=== PATIENT | male | born 1975 | race Two or more races ===

== ENCOUNTER 2018-03-28 19:55 | Inpatient (IN) | payer OTHER ==
[~2018-03-28] VITALS: Ht 190.5 cm; Wt 87.9 kg
[2018-03-28] MEDS ORDERED: LORazepam 2MG/ML-1ML VIAL IV PRN (23:30)
[2018-03-28] MEDS ORDERED: DEXTROSE (50%) 50ML SYRG IV PRN (23:30)
[2018-03-28] MEDS ORDERED: LABETALOL HCL 5 MG/ML ML 20ML VIAL IV PRN (23:30)
[2018-03-28] MEDS ORDERED: ACETAMINOPHEN 650 mg PER 20 mL UD GT PRN (23:30)
[2018-03-28] MEDS ORDERED: BISACODYL 10 MG RECT SUPP PR PRN (23:30)
[2018-03-28] MEDS ORDERED: MORPHINE SULFATE 4 MG/ML SYR/VIAL IV PRN ×2 (23:30)
[2018-03-28] MEDS ORDERED: NITROGLYCERIN 0.4 MG SL TAB SL PRN (23:30)
[2018-03-28] MEDS ORDERED: ONDANSETRON HCL 4 MG/2 ML VIAL IV PRN (23:30)
[2018-03-29] MEDS: ACCU-CHEK COMFORT CURVE STRIP VI SCH ×5 (01:33→23:35)
[2018-03-29 01:56] LABS: Basophils # (auto) 0 uL; Basophils % (auto) 0.3 % (0.0-2.0); Eosinophils # (auto) 0.1 uL; Eosinophils % (auto) 0.6 % (0.0-7.0); Hematocrit 40.7 % (41.0-53.0); Hemoglobin 13.6 g/dL (13.5-17.5); Lymphocytes # (auto) 0.6 uL; Lymphocytes % (auto) 4.8 % (10.0-50.0); Mean Corpuscular Hemoglobin 32.3 pg (28.0-32.0); Mean Corpuscular Hgb Conc. 33.4 g/dL (32.0-36.0); Mean Corpuscular Volume 96.6 fL (80.0-100.0); Monocytes # (auto) 1.3 uL; Neutrophils # (auto) 9.7 uL; Neutrophils % (auto) 83.3 % (37.0-80.0); Platelet Count (auto) 350 10^3/uL (140-450); Red Blood Cells 4.21 10^6/uL (4.5-5.90); Red Cell Distribution Width 13.3 % (11.8-14.3); White Blood Cell 11.6 10^3/uL (4.4-10.8)
[2018-03-29 02:02] LABS: INR 0.96 (0.9-1.15); Partial Thromboplastin Time 30.1 sec (23.78-33.04); Prothrombin Time 10.3 sec (9.27-12.13)
[2018-03-29 02:04] LABS: Albumin 2.3 g/dL (3.4-5.0); BUN/Creatinine Ratio 22.7; Potassium 4.5 mmol/L (3.5-5.1)
[2018-03-29 02:05] LABS: Bilirubin, Total 0.8 mg/dL (0.2-1.0); Total Protein 8.3 g/dL (6.4-8.2)
[2018-03-29] MEDS: MORPHINE SULF INJ 2 MG/ML SYRINGE 1ML IV PRN ×2 (04:00→19:52)
[2018-03-29] MEDS ORDERED: MORPHINE SULF INJ 2 MG/ML SYRINGE 1ML IV PRN (04:00)
[2018-03-29 05:00] VITALS: BP 126/70
[2018-03-29] MEDS: InsuLIN REG 1unit/0.01ml Soln (100units/ml) SC SCH ×5 (06:00→23:36)
[2018-03-29] MEDS: SUCRALFATE 1 GM/10 ML ORAL SUSP GT SCH ×5 (06:43→21:53)
[2018-03-29 08:00] VITALS: BP 126/80
[2018-03-29] MEDS: DEXAMETHASONE SOD PHOS 4 MG/1ML SDV INJ IV SCH ×2 (11:31→21:53)
[2018-03-29] MEDS: FAMOTIDINE (10MG/ML) 2ML VL IV SCH ×2 (11:31→21:53)
[2018-03-29] MEDS: PHENYTOIN IV DILANTIN 300 MG in SODIUM CHL 0.9% 50 ML IV SCH ×2 (12:07→22:14)
[2018-03-29 13:03] VITALS: BP 123/87
[2018-03-29] MEDS ORDERED: Jevity 1.2 Cal/Fiber 1 Liter GT SCH (15:45)
[2018-03-29 16:32] VITALS: BP 129/90
[2018-03-29] MEDS: APIXABAN 5 MG TAB PO SCH (21:53)
[2018-03-29 22:00] VITALS: BP 136/84
[2018-03-30 05:00] VITALS: BP 136/79
[2018-03-30] MEDS: ACCU-CHEK COMFORT CURVE STRIP VI SCH ×3 (05:32→17:42)
[2018-03-30] MEDS: InsuLIN REG 1unit/0.01ml Soln (100units/ml) SC SCH ×3 (05:32→17:41)
[2018-03-30] MEDS: SUCRALFATE 1 GM/10 ML ORAL SUSP GT SCH ×4 (06:21→22:16)
[2018-03-30] MEDS: MORPHINE SULF INJ 2 MG/ML SYRINGE 1ML IV PRN ×2 (06:21→17:44)
[2018-03-30 09:00] VITALS: BP 129/86
[2018-03-30] MEDS: DEXAMETHASONE SOD PHOS 4 MG/1ML SDV INJ IV SCH ×2 (09:42→22:16)
[2018-03-30] MEDS: APIXABAN 5 MG TAB PO SCH ×2 (09:43→22:16)
[2018-03-30] MEDS: FAMOTIDINE (10MG/ML) 2ML VL IV SCH ×2 (09:43→22:16)
[2018-03-30] MEDS: PHENYTOIN IV DILANTIN 300 MG in SODIUM CHL 0.9% 50 ML IV SCH ×2 (09:57→22:19)
[2018-03-30 13:00] VITALS: BP 129/74
[2018-03-30 17:00] VITALS: BP 133/84
[2018-03-30 22:00] VITALS: BP 121/71
[2018-03-31] MEDS: ACCU-CHEK COMFORT CURVE STRIP VI SCH ×4 (00:41→17:39)
[2018-03-31 05:00] VITALS: BP 120/78
[2018-03-31] MEDS: InsuLIN REG 1unit/0.01ml Soln (100units/ml) SC SCH ×4 (06:22→17:39)
[2018-03-31] MEDS: SUCRALFATE 1 GM/10 ML ORAL SUSP GT SCH ×4 (06:22→22:26)
[2018-03-31] MEDS: MORPHINE SULF INJ 2 MG/ML SYRINGE 1ML IV PRN ×2 (08:38→20:13)
[2018-03-31 08:59] VITALS: BP 119/82
[2018-03-31] MEDS: APIXABAN 5 MG TAB PO SCH ×2 (10:32→22:26)
[2018-03-31] MEDS: FAMOTIDINE (10MG/ML) 2ML VL IV SCH ×2 (10:33→22:27)
[2018-03-31] MEDS: DEXAMETHASONE SOD PHOS 4 MG/1ML SDV INJ IV SCH ×2 (10:33→22:26)
[2018-03-31] MEDS: PHENYTOIN IV DILANTIN 300 MG in SODIUM CHL 0.9% 50 ML IV SCH ×2 (10:48→22:27)
[2018-03-31 13:09] VITALS: BP 144/85
[2018-03-31 16:56] VITALS: BP 129/87
[2018-03-31 22:00] VITALS: BP 130/84
[2018-04-01] MEDS: ACCU-CHEK COMFORT CURVE STRIP VI SCH ×4 (00:12→17:50)
[2018-04-01 05:00] VITALS: BP 115/69
[2018-04-01] MEDS: InsuLIN REG 1unit/0.01ml Soln (100units/ml) SC SCH ×4 (06:18→17:50)
[2018-04-01] MEDS: SUCRALFATE 1 GM/10 ML ORAL SUSP GT SCH ×2 (06:19→12:09)
[2018-04-01 06:34] LABS: Basophils # (auto) 0 uL; Basophils % (auto) 0.6 % (0.0-2.0); Eosinophils # (auto) 0.2 uL; Eosinophils % (auto) 3.7 % (0.0-7.0); Hematocrit 37.2 % (41.0-53.0); Hemoglobin 12.5 g/dL (13.5-17.5); Lymphocytes # (auto) 0.6 uL; Lymphocytes % (auto) 9.6 % (10.0-50.0); Mean Corpuscular Hemoglobin 32.5 pg (28.0-32.0); Mean Corpuscular Hgb Conc. 33.5 g/dL (32.0-36.0); Mean Corpuscular Volume 96.8 fL (80.0-100.0); Monocytes # (auto) 0.7 uL; Monocytes % (auto) 10.4 % (0.0-12.0); Neutrophils % (auto) 75.7 % (37.0-80.0); Platelet Count (auto) 345 10^3/uL (140-450); Red Blood Cells 3.85 10^6/uL (4.5-5.90); Red Cell Distribution Width 13.8 % (11.8-14.3); White Blood Cell 6.6 10^3/uL (4.4-10.8)
[2018-04-01 06:41] LABS: Potassium 4.2 mmol/L (3.5-5.1)
[2018-04-01 06:54] LABS: Albumin 2.2 g/dL (3.4-5.0); BUN/Creatinine Ratio 23.7; Bilirubin, Total 0.5 mg/dL (0.2-1.0); Total Protein 7.9 g/dL (6.4-8.2)
[2018-04-01 09:07] VITALS: BP 130/83
[2018-04-01] MEDS: DEXAMETHASONE SOD PHOS 4 MG/1ML SDV INJ IV SCH ×2 (10:18→22:36)
[2018-04-01] MEDS: APIXABAN 5 MG TAB PO SCH ×2 (10:18→22:36)
[2018-04-01] MEDS: FAMOTIDINE (10MG/ML) 2ML VL IV SCH ×2 (10:18→22:36)
[2018-04-01] MEDS: PHENYTOIN IV DILANTIN 300 MG in SODIUM CHL 0.9% 50 ML IV SCH ×2 (10:27→22:00)
[2018-04-01 12:24] LABS: Hepatitis B Surface Antigen Negative (Negative)
[2018-04-01 13:00] VITALS: BP 121/87
[2018-04-01 13:11] LABS: Hepatitis B Core IgM Negative
[2018-04-01 17:00] VITALS: BP 132/83
[2018-04-01] MEDS ORDERED: ACETAMINOPHEN 650 mg PER 20 mL UD PO PRN (17:15)
[2018-04-01 22:01] VITALS: BP 126/84
[2018-04-01] MEDS: SUCRALFATE 1 GM/10 ML ORAL SUSP PO SCH (22:36)
[2018-04-02] VITALS (30 sets, daily range): BP systolic 120–147; BP diastolic 64–102
[2018-04-02] MEDS ORDERED: PHENYTOIN SODIUM 50 MG/ML 2ML VIAL IV ONE (00:46)
[2018-04-02] MEDS: ACCU-CHEK COMFORT CURVE STRIP VI SCH ×4 (05:58→18:43)
[2018-04-02] MEDS: SUCRALFATE 1 GM/10 ML ORAL SUSP PO SCH ×4 (05:58→21:22)
[2018-04-02] MEDS: InsuLIN REG 1unit/0.01ml Soln (100units/ml) SC SCH ×4 (06:00→20:09)
[2018-04-02] MEDS ORDERED: POTASSIUM CHL 20 Meq TABLET PO SCH (10:00)
[2018-04-02] MEDS ORDERED: FUROSEMIDE 20 MG/2 ML VIAL IV SCH (10:00)
[2018-04-02] MEDS: APIXABAN 5 MG TAB PO SCH (10:05)
[2018-04-02] MEDS: DEXAMETHASONE SOD PHOS 4 MG/1ML SDV INJ IV SCH (10:06)
[2018-04-02] MEDS: FAMOTIDINE (10MG/ML) 2ML VL IV SCH ×2 (10:06→21:22)
[2018-04-02] MEDS: PHENYTOIN IV DILANTIN 300 MG in SODIUM CHL 0.9% 50 ML IV SCH ×2 (11:15→21:23)
[2018-04-02] MEDS ORDERED: ETOMIDATE (2MG/ML) 20ML VIAL IV ONE (16:08)
[2018-04-02] MEDS ORDERED: SUCCINYLCHOLINE CHLORIDE 20 MG/ML 10ML VIAL IV ONE (16:09)
[2018-04-02] MEDS ORDERED: PROPOFOL 100 ML IV ONE (16:32)
[2018-04-02] MEDS ORDERED: DEXAMETHASONE SOD PHOS 4 MG/1ML SDV INJ IV SCH (22:00)
[2018-04-04 09:57] LABS: Hepatitis C Antibody Negative (Negative)
[2018-04-04 10:33] LABS: Hepatitis A Ab IgM Negative
== END 2018-04-02 21:47 | disposition short-term general hospital (02) | DRG 64 ==
LOC: EAST 19:55 → EEVIPCON 19:55 → ICU WEST 04-02 15:38
PROVIDERS: ADMIT Internal Medicine; ATTEND Internal Medicine
DX: I61.5 Nontraumatic intracerebral hemorrhage, intraventricular (principal); G93.5 Compression of brain; I26.99 Other pulmonary embolism without acute cor pulmonale; C71.9 Malignant neoplasm of brain, unspecified; G81.91 Hemiplegia, unspecified affecting right dominant side; G91.1 Obstructive hydrocephalus; R56.9 Unspecified convulsions; R40.20 Unspecified coma; I10 Essential (primary) hypertension; E11.9 Type 2 diabetes mellitus without complications; Z79.01 Long term (current) use of anticoagulants; Z86.711 Personal history of pulmonary embolism; Z90.49 Acquired absence of other specified parts of digestive tract; Z85.841 Personal history of malignant neoplasm of brain
CPT/HCPCS: 36415; 36600; 70450; 71045; 76705; 80053; 80074; 80185; 82805; 82962; 85025; 85610; 85730; 87040; 87070; 87077; 87081; 87086; 87088; 87186; 87205; 92610; 93005; 97110; 97116; 97530; A4565; A6257; G0378; J0330; J1100; J1815; J2704; J3490